=== PATIENT | male | born 1970 | race Hispanic/Latino ===

== ENCOUNTER 2019-04-09 16:44 | Outpatient (CLI) | payer BC ==
--- NOTE | 2019-04-09 17:28 | ULT ---
Focused ultrasound of the left lower quadrant: 04/09/2019 COMPARISON: None HISTORY: Palpable mass in the left lower quadrant TECHNIQUE: Multiplanar grayscale sonographic imaging of the left lower quadrant in the area of palpab le concern obtained. FINDINGS: There is a nonspecific heterogeneously hypoechoic solid mass in the area of palpable concer n within the subcutaneous fat measuring 1.6 x 2.0 x 0.6 cm. IMPRESSION: Solid mass in the area of palpable concern, nonspecific. Further assessment via CT or MRI of the area of concern with and without contrast advised CODE T
== END 2019-04-09 16:45 | disposition home or self-care (01) ==
LOC: SCSULT 16:44
PROVIDERS: ATTEND Family Medicine
DX: R19.04 Left lower quadrant abdominal swelling, mass and lump (principal)
CPT/HCPCS: 76705